=== PATIENT | female | born 1980 ===

== ENCOUNTER 2017-08-10 07:57 | Outpatient (CLI) | payer OTHER ==
[~2017-08-10 07:57] MED LIST: CIPRODEX OTIC7.5 ML; DIOVAN40 MG PO; HYDROCHLORIC A500 M1 MC; LANOXIN0.25 MG PO; SINGULAIR10 MG PO; ZITHROMAX500 MG
== END 2017-08-10 11:03 | disposition home or self-care (01) ==
LOC: NUCLEAR 07:57
DX: I34.0 Nonrheumatic mitral (valve) insufficiency (principal); I27.20 Pulmonary hypertension, unspecified

== ENCOUNTER 2017-08-19 09:17 | Outpatient (CLI) | payer OTHER | END 2017-08-19 09:34 | disposition home or self-care (01) | LOC: NUCLEAR 09:17 | DX: I34.0 Nonrheumatic mitral (valve) insufficiency (principal) ==

== ENCOUNTER 2018-03-10 09:22 | Outpatient (CLI) | payer OTHER | END 2018-03-10 09:56 | disposition home or self-care (01) | LOC: NUCLEAR 09:22 | DX: I34.0 Nonrheumatic mitral (valve) insufficiency (principal); I50.42 Chronic combined systolic (congestive) and diastolic (congestive) heart failure ==